=== PATIENT | female | born 1990 | race Caucasian/White ===

== ENCOUNTER 2025-06-20 08:22 | Outpatient (AMB) | payer OTHER, SELFPAY ==
--- NOTE | 2025-06-20 13:45 | A.OFFVIS_ITS ---
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: Yes Hoisting Machine Operator Services: Hoisting Machine Operator Present Information Interpreted: clinical only Allergies No Known Allergies Allergy (Verified 06/20/25 13:46) Medication List - Last Reconciled 06/20/25 by Yasir Pederson MD diclofenac sodium 75 mg PO BID famotidine 20 mg PO DAILY lisinopril 20 mg PO DAILY HPI HPI 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*: Details: Start time: 1.30pm, End time: 2.15pm ?I spent 40 minutes speaking with the patient on the phone plus an additional 5 minutes reviewing and updating records for a total of 45 minutes HPI Comments Details: Previous weight loss efforts: Self diets and exercise Wakes up: 5am, Sleeps: 10pm Breakfast: 8am Lunch: 3pm Dinner: 7pm Snacks: 10am (fruits, chocolate, cookies), sometimes in the afternoon Exercise: has a treadmill that inclines and tracks calories Beverages: Coffee: none, Tea: (tea with lemon), Soda: regular Coke or Sprite, Juice: none, ETOH: 1/yr PFSH Medical History (Updated 06/20/25 @ 13:49 by Yasir Pederson MD) DJD (degenerative joint disease) GERD with apnea Hypertension affecting Morbid obesity Surgical History (Updated 03/13/25 @ 14:07 by Rosa Cha CMA) No history of previous surgery Family History (Updated 03/13/25 @ 14:07 by Rosa Cha CMA) Mother No problems noted. Father No problems noted. Social History (Updated 03/13/25 @ 14:07 by Rosa Cha CMA) Alcohol intake: never Patient Tobacco Use Status: Never used Tobacco Physical Exam Vital Signs: BMI result Body Mass Index 44.9 Telehealth Telehealth Telehealth Platform: Telephone Location of provider rendering services: practice address Location of patient: address on file Patient Identification confirmed using: Name, : Yes Telehealth method: voice only Patient verbally consented to treatment: Yes Patient verbally consented to billing insurance company: Yes Patient informed of any privacy concerns related to visit: Yes Minutes spent on Phone/Video with Pt.: 45 Assessment & Plan Assessment & Plan (1) Morbid obesity: Code(s): E66.01 - Morbid (severe) obesity due to excess calories Category: Medical Plan: 1.? As we discussed, based on your present BMI you are approximately 130lbs overweight. In my opinion, for any weight loss strategy to be successful should have a high probability to help you lose at least 100lbs out of 130lbs of the extra weight you carry. We discussed in detail the available therapeutic options: 1) our lifestyle intervention program that has an average weight loss of 10% in 3 months.?Some patients continue it for longer and have lost over 50lbs but this is not common. Our lifestyle program can be provided by me. I will provide you with a link to use the aura if you choose to do so. We use protein shakes and protein bars to replace some of the meals of the day and cover your appetite better. We will decide together the exact combination. 2) Weight loss medications: these can be used in conjunction with our lifestyle program or you may choose to use them without following a lifestyle program from my program but your own. As we discussed, your insurance requires you to do the lifestyle program for 3 months before they approve the medications but after 08/14/25 they anounced that they won't cover any medication. We also discussed michael t you can self pay for the first 3 months and the cost is $249 for the first month and $499 for any other month thereafter. These payments go to the drug company directly and not to us. Another option is the Phentermine pill. 3) We also discussed about the lap sleeve gastrectomy. In my opinion this is the best option to solve your problem based on your situation and should be used in conjunction with the two previous options. A good strategy to make this decision to proceed with surgery, is to set some goals with the lifestyle intervention and medication options: If you don't lose at least 10lbs the first 6 weeks after starting the program or at least 10% in 3 months.?I emphasized the importance of close follow-up, adherence to instructions and good communication. The surgery does not replace the need to change your lifestlyle which is the cause of the obesity problem. The surgery provides the motivation to try again to change your lifestyle, it reduces the appetite and make the transition to a better lifestyle easier and doubles the amount of weight you would lose compared to doing the lifestyle change without the surgery. You will need to be on a liquid diet with protein shakes for 2 weeks before surgery to maximize weight loss and boost your nutritional status to recover better from surgery and also for the first two weeks after surgery to let the stomach heal before we in troduce other foods. After the first 2 weeks we will introduce protein bars and soft foods like scrambled eggs, cottage cheese and yogurt and after the 6th week will introduce meat, fish and cooked vegetables in small amounts. Over time you should be able to eat everything in small amounts. Side effects like nausea, vomiting, heartburn or abdominal pain are not common in the practice unless you are not following in the practice. This operation requires lifetime commitment to following in our practice and communication with me. You will much less weight and experience side effects if you don?t communicate or not following in the practice. Complications are rare and in our practice is about 1/10 of the national average. The patient decided to proceed with medical weight loss with the use of Phentermine. 2.? Nutritional counseling. Start with one CELEBRATE REBUILD protein (buy online) shake (ONE scoop in 8oz low fat unsweetened almond milk) at 6am-8am, one protein bar (CELEBRATE protein bars, buy online) at 9am-11am, another CELEBRATE REBUILD protein shake (ONE scoop in 8oz low fat unsweetened almond milk) at 12pm-2pm, another Celebrate protein bar at 3pm-5pm, dinner at 6pm (10 forks of protein and 10 forks of salad/vegetables) AND one more protein bar after dinner at 8pm-10pm. So you do 2 protein shakes, 3 protein bars and one meal per day. Meal to include lean meat (beef, fish, pork, turkey, chicken), or norwegian yogurt, or egg whites, or beans with a salad with olive oil and fruits (berries, pears, apples, kiwi). Avoid salt, breads, potatoes, rice, pasta, desserts. 3. Each shake would be drunk slowly, like coffee in a period of 2 hours. 4. Cut each bar in 4 pieces and eat each piece in 30min ?to make each bar last 2 hours. 5. I emphasized the importance of measuring accurately the food portion and measure it when serving the food in plate 6. The meal portions include 10 full-size forks of meat and 10 full-size forks of salad. You always eat the meat portion but you can replace up to 5 forks for salad/vegetables with rice, potatoes or pasta, or a fruit ?if you like. The less you do it the better weight loss will be. 7. One full-size fork is what it can be scooped on the fork without falling aside and not what can be bit with the fork. Use regular forks like those you find in a typical restaurant. 8.? Please buy the body composition scale we discussed and send me weight measurements as soon as possible and then once a week. Always include your diet and exercise plan. 9. Start treadmill with an incline of 2.0 and speed of 3.0. Increase incline by 1 every 3 min to a max incline of 8.0, stay 3min at 8.0 and then return to 2.0 and repeat same steps until calorie goal is met. Goal is to burn 2000 calories per week on exercise, which means either 300 calories daily. 10.?It is important of avoiding and for at least 18 months postoperatively and has been discussed at the infosession. 11. Goal is to lose at least 1.5-2lbs per week 12. Goal to lose at least 10% of your weight, which is about 23lbs. Minimum weight goal: 230lbs 13. Please follow the diet plan exactly without any change. If you don't like something about the plan or you feel hungry you need to communicate with me so I can help you revise the plan. You should not change the plan yourself 14. Start Phentermine daily at 10am. We discussed the potential side-effects of the Phentermine such as irritability, dry mouth, difficulty sleeping, dizziness, numbness in feet and high blood pressure. I asked her to get a blood pressure monitor and measure the blood pressure daily in the morning and evening. She needs to send the blood pressure readings daily and to call the office for blood pressure over 140/80 and she understands that. Medications: New phentermine must administer 30 minutes before or 1-2 hours after breakfast 37.5 mg PO DAILY 30 tabs 0RF E66.01 - Morbid (severe) obesity due to excess calories
[2025-06-20 13:49] VITALS: BMI 44.9
== END 2025-06-21 11:59 | disposition home or self-care (01) ==
LOC: HO.HBS 08:22
PROVIDERS: Visit Provider Surgery
DX: E66.01 Morbid (severe) obesity due to excess calories (principal)
CPT/HCPCS: 99204